=== PATIENT | female | born 1990 | race Two or more races ===

== ENCOUNTER 2024-04-24 11:31 | Emergency (ER) | payer MEDICAID, SELFPAY ==
[2024-04-24 11:44] VITALS: BP 118/78; PULSE 84; RESP 18; TEMP 36.7; O2SAT 100; BMI 25.2
--- NOTE | 2024-04-24 12:01 | EDNOTE_ITS ---
ED Abdominal Pain RME/HPI General Chief Complaint: Abdominal Pain Stated complaint: RLQ ABD PAIN X 0200 Time seen by provider: 04/24/24 11:38 Arrival date/time: 04/24/24 11:31 RME / HPI RME / HPI narrative: This section includes all my notes and documentations, including HPI, PE, and ED course.? Gordon Balderas MD HPI: 34 year old female with surgical hx that includes and tubal ligation, otherwise no other chronic medical history reported presents to the ED for evaluation of abdominal pain beginning ~ 9 hours prior to arrival. Described as aching in sensation that is located most to the right lower quadrant, rating as moderate. Accompanied by nausea without vomiting. Denies fevers, chills, diarrhea, or urinary symptoms. No other complaints. ROS: All negative except as documented in HPI. Physical Exam: General:? Alert and oriented.? No acute distress when remaining still.?? Eyes:? Conjunctivae and lids clear.? ENT:? No nasal congestion.? Neck:? Supple.? Heart:? RRR.? Lungs:? No respiratory distress.? Good air movement.? Abdomen:? Soft with RLQ tenderness. Legs:? No clubbing, cyanosis, edema.? Skin:? Warm and dry.?? Neuro:? Alert and oriented X 3.?? I reviewed all diagnostic test results. My review of the CT report is?normal appendix, findings suggestive of rupture ovarian cyst. Blood tests and urine tests?unremarkable. At this point, diagnoses include?ovarian cyst rupture. She remained stable. Recommended supportive care. Based on my best medical judgment, made decision no further evaluation or treatment indicated at this time.? Patient understands and agrees to the discharge instructions customized and printed, see below. Discharge instructions from Dr. Balderas: -- After extensive evaluation, there is no emergency such as appendicitis needing urgent surgery. -- Your pain is from ovarian cyst that ruptured. -- In young females, it is normal to have ovarian cysts (sacs of fluid) that come and go depending on the menstruation.? If a cyst ruptures, it can cause severe pain until your body reabsorbs the fluid. -- Apply ice or heat if helpful. Ibuprofen 600 mg every 6-8 hours today and tomorrow to decrease inflammation then as needed. Tylenol with codeine for severe pain. -- See a private doctor on 04/28/2024 if not completely better.? -- Seek immediate medical care with worsening, fever, or with any concerns. Instrucciones de mary carmen del Dr. Balderas: -- Despu?s de ziggy evaluaci?n exhaustiva, no hay ninguna emergencia claire apendicitis que requiera cirug?a urgente. -- Lo m?s probable es que el dolor se deba a un quiste ov?rico que se rompi?. -- En las mujeres j?venes, es normal tener quistes ov?ricos (bolsas de l?quido) que aparecen y desaparecen seg?n la menstruaci?n. Si un quiste se rompe, puede causar un dolor intenso hasta que el cuerpo reabsorba el l?quido. -- Aplique hielo o calor si es ?til. Y analg?sicos de venta patti. -- Consulte a un m?dico privado el 10/29/2023. Solicite ziggy derivaci?n para halina a un ginec?logo para asegurarse de que no haya otras afecciones subyacentes graves. -- Busque atenci?n m?dica inmediata si empeora, tiene fiebre o tiene alguna inquietud. Gordon Balderas MD Related Data Previous Rx's ?Medication ?Instructions ?Recorded ferrous sulfate 324 mg (65 mg 324 mg PO BID #60 tabs 0 08/18/23 iron) tablet,delayed release acetaminophen 300 mg-codeine 30 mg 2 tab PO TID PRN pa in #20 tabs 04/24/24 tablet Allergies Allergy/AdvReac Type Severity Reaction Status Date / Time ambroxol Allergy Rash Verified 04/24/24 11:33 metronidazole Allergy Rash Verified 04/24/24 11:33 Review of Systems Review of Systems Systems Reviewed: All systems reviewed, normal except as documented Past Medical History Past Medical History CARDIAC: Negative Congestive Heart Failure RESPIRATORY: Negative Chronic Obstructive Pulmonary Disease (COPD) GENITOURINARY: Negative Renal Disease ENDOCRINE: Negative Diabetes Mellitus Type 1 or Diabetes Mellitus Type 2 Social History SMOKING STATUS: Never smoker ED Exam Narrative Physical exam: As noted in HPI Course Quality Measures none Orders Category Date Time Status CT abdomen pelvis wo con Stat Exams 04/24/24 12:05 Completed Amylase Stat Lab 04/24/24 12:25 Completed CBC Stat Lab 04/24/24 12:25 Completed CMP [Comprehensive Metabolic Panel] Stat Lab 04/24/24 12:25 Completed Lipase Stat Lab 04/24/24 12:25 Completed Magnesium Stat Lab 04/24/24 12:25 Completed UA [Urinalysis] Stat Lab 04/24/24 13:00 Completed Vital Signs Vital signs: Vital Signs Temperature 98.1 F 04/24/24 11:44 Pulse Rate 84 04/24/24 11:44 Respiratory Rate 18 04/24/24 11:44 Blood Pressure 118/78 04/24/24 11:44 Pulse Oximetry (%) 100 04/24/24 11:44 Oxygen Delivery Method Room Air 04/24/24 11:44 Pulse ox is 100% on room air which is adequate. Abdominal Pain MDM MDM Narrative MDM Narrative:: Bijal Barraza am scribing for and in the presence of Dr. Balderas. Patient data External records reviewed:: [facility] previous records (I reviewed ED visit on 08/18/2023) Clinical information provided by:: patient Social determinants that could affect healthcare access:: none Patient has the following chronic illnesses:: surgical hx that includes and tubal ligation, otherwise no other chronic medical history How is presenting disease/condition affected by chronic disease/condition?: no chronic disease Evaluation data The following diagnostics were reviewed and interpreted by me:: lab results and radiology exam(s) Lab and/or radiology exams considered but not ordered:: None Interpretation Summary: My review of the CT report is?normal appendix. Medications / Prescriptions Medications or Prescriptions considered but not ordered:: None Medication administrations:: None Consultations Consultation(s) initiated? (list below): No Diagnosis Differential diagnosis abdominal pain: abdominal pain, acute appendicitis, calculus of kidney, constipation and gastroenteritis Most likely diagnosis given after review of the tests above:: Ovarian cyst rupture Admission Indicated Admission indicated?: not indicated Explain why admission is indicated or not indicated:: Does not meet admission criteria Admission Request Was there a request for admission?: No Disposition Plan Disposition Plan: Discharge Discharge Attestation Discharge Attestation: The patient and all family members were given an opportunity to ask questions and understood the discharge instructions. Discharge instructions specifically effects, indications for sooner follow up or return to the emergency department, and the expected course of current diagnosis. Patient condition: Stable Discharge Plan Plan Patient Disposition: HOME (Self Care) Prescriptions/Referrals Prescriptions/Med Rec: New acetaminophen-codeine 300-30 mg tablet 2 tab PO TID MDD 6 PRN (Reason: pain) Qty: 20 0RF No Action ferrous sulfate 324 mg (65 mg iron) tablet,delayed release (DR/EC) 324 mg PO BID Qty: 60 0RF Referrals: Stalin Clay MD [Primary Care Provider] - In 1 week Problem List Clinical Impression: Ovarian cyst rupture Patient/Caregiver Discharge Instructions Discharge Activity: activity as tolerated Education Materials: ED Ovarian Cyst Additional Instructions: Discharge instructions from Dr. Balderas: -- After extensive evaluation, there is no emergency such as appendicitis needing urgent surgery. -- Your pain is from ovarian cyst that ruptured. -- In young females, it is normal to have ovarian cysts (sacs of fluid) that come and go depending on the menstruation.? If a cyst ruptures, it can cause severe pain until your body reabsorbs the fluid. -- Apply ice or heat if helpful. Ibuprofen 600 mg every 6-8 hours today and tomorrow to decrease inflammation then as needed. Tylenol with codeine for severe pain. -- See a private doctor on 04/28/2024 if not completely better.? -- Seek immediate medical care with worsening, fever, or with any concerns. Instrucciones de mary carmen del Dr. Balderas: -- Despu?s de ziggy evaluaci?n exhaustiva, no hay ninguna emergencia claire apendicitis que requiera cirug?a urgente. -- Lo m?s probable es que el dolor se deba a un quiste ov?rico que se rompi?. -- En las mujeres j?venes, es normal tener quistes ov?ricos (bolsas de l?quido) que aparecen y desaparecen seg?n la menstruaci?n. Si un quiste se rompe, puede causar un dolor intenso hasta que el cuerpo reabsorba el l?quido. -- Aplique hielo o calor si es ?til. Y analg?sicos de venta patti. -- Consulte a un m?dico privado el 10/29/2023. Solicite ziggy derivaci?n para halina a un ginec?logo para asegurarse de que no haya otras afecciones subyacentes graves. -- Busque atenci?n m?dica inmediata si empeora, tiene fiebre o tiene alguna inquietud. Print Language: [place] Stand Alone Forms: Lauren Award Info., Patient Portal Info Letter
--- NOTE | 2024-04-24 12:05 | XR_ITS ---
Examination: CT abdomen and pelvis without contrast. Coronal 3-D reconstructions. Sagittal 2-D reconstructions. Date and time of exam:April 24, 2024 1438 hours INDICATIONS: Onset right lower abdominal pain today CTDI: vol (mGy): 8.17 DLP: (mGycm): 477 Technique: Axial images of the abdomen have been obtained, 3 mm slice thickness Intravenous contrast material has not been administered. Low dose protocols were performed. One or more of the following dose reduction techniques were used; automated exposure control, adjustment of the mA and/or KV according to patient size, use of iterative reconstruction technique. Findings: No focal liver or splenic lesions No gallstones No pancreatic or adrenal mass No renal or ureteral calculi, no hydronephrosis Normal appendix No bowel obstruction 6 mm fat-containing umbilical hernia No diverticulitis Partially retroverted uterus with mildly enlarged fundus Free fluid, moderate in the pelvis, Probable 15 mm cyst in the cervix Urinary bladder intact Intact osseous structures IMPRESSION: Normal appendix Mildly enlarged fundus of uterus with moderate free fluid in the pelvis Recommend pelvic sonography follow-up
[2024-04-24 12:38] LABS: Basophils # (Auto) 0.1 Thou/mm3 (0.0-0.2); Basophils % (Auto) 1 % (0-2.5); Eosinophils % (Auto) 0 % (0-10); Hematocrit 38.1 % (36.0-46.0); Hemoglobin 11.7 g/dL (12.0-16.0); Immature Granulocytes % (Auto) 0 % (0-0); Immature Granulocytes Auto 0.01 Thou/mm3 (0.00-0.00); Lymphocytes # (Auto) 1.4 Thou/mm3 (1.0-4.8); Lymphocytes % (Auto) 20 % (10-50); Mean Corpuscular HGB Conc 30.7 g/dl (31.0-37.0); Mean Corpuscular Hemoglobin 23.9 pg (25.0-35.0); Mean Corpuscular Volume 78 fL (80-100); Monocytes # (Auto) 0.5 Thou/mm3 (0.0-0.8); Monocytes % (Auto) 7 % (0-12); Neutrophils # (Auto) 4.9 Thou/mm3 (1.8-7.7); Neutrophils % (Auto) 72 % (37-80); Nucleated Red Blood Cell % 0 /100 WBC (0); Platelet Count 336 Thou/mm3 (140-440); RDW Standard Deviation 44.2 fL (36.4-46.3); Red Blood Count 4.89 Miln/mm3 (4.00-5.20); White Blood Count 6.8 Thou/mm3 (3.6-11.0)
[2024-04-24 12:56] LABS: Alanine Aminotransferase 14 U/L (10-49); Albumin, Serum 4.9 gm/dL (3.5-5.0); Albumin/Globulin Ratio 1.6 (1.2-2.2); Alkaline Phosphatase 73 U/L (46-116); Amylase 104 U/L (30-118); Anion Gap 10 (7-16); Aspartate Amino Transferase 17 U/L (0-34); BUN/Creatinine Ratio 13 Ratio (12-20); Bilirubin,Total 0.4 mg/dL (0.3-1.2); Blood Urea Nitrogen 9 mg/dL (9-23); Calcium 9.8 mg/dL (8.3-10.6); Calcium (Corrected) 9.8 mg/dL (8.5-10.1); Carbon Dioxide 24.3 mMol/L (20.0-31.0); Chloride 105 mMol/L (98-107); Creatinine (Component) 0.7 mg/dL (0.6-1.3); Estimated Creatinine Clearance 108.4 mL/min (>60); Globulin 3.1 gm/dL (2.3-3.5); Glucose 102 mg/dL (74-106); Lipase 38 U/L (12-53); Magnesium 2.1 mg/dL (1.6-2.6); Osmolality,Calculated 276 (275-295); Sodium 139 mMol/L (136-145); eGFR > 60 See Note
[2024-04-24 13:05] LABS: Collection Type, Urine Clean Catch
[2024-04-24 13:13] LABS: Bacteria,Urine Rare; Bilirubin,Urine Negative (Negative); Blood,Urine Negative (Negative); Clarity,Urine Clear (Clear/Hazy); Color,Urine Lt-Yellow (Lt Yel-Yel); Glucose, Urine Negative (Negative); Ketones,Urine Negative (Negative); Leukocyte Esterase,Urine Negative (Negative); Nitrite,Urine Negative (Negative); PH,Urine 6.5 (5.0-7.0); Protein,Urine Negative (Neg - Trace); RBC,Urine 1 /hpf (0-3); Specific Gravity,Urine 1.012 (1.001-1.035); Squamous Epithelial Cell,Urine 1 /hpf (0-5); Urobilinogen,Urine Negative mg/dL (0.0-1.0); WBC,Urine 1 /hpf (0-5)
[2024-04-24 14:47] VITALS: BP 114/71; PULSE 84; RESP 19; TEMP 36.3; O2SAT 100
[2024-04-24 16:10] VITALS: BP 110/72; PULSE 85; RESP 17; TEMP 36.6; O2SAT 97
== END 2024-04-24 16:17 | disposition home or self-care (01) ==
PROVIDERS: Emergency Provider Emergency Medicine; PCP Family Medicine
DX: N83.201 Unspecified ovarian cyst, right side (principal)
CPT/HCPCS: 36415; 74176; 80053; 81001; 82150; 83690; 83735; 85025; 99284

== ENCOUNTER 2024-11-20 09:25 | Emergency (ER) | payer MEDICAID, SELFPAY ==
[2024-11-20 09:43] VITALS: BP 118/81; PULSE 75; RESP 17; TEMP 36.8; O2SAT 100
--- NOTE | 2024-11-20 10:00 | EKG_ITS ---
[facility] Test Date: 2024-11-20 Pat Name: DELIO GOLDMAN Department: Room: - Gender: Female Patent Drafter: : 1990 Requested By: Coy Anaya (GAYE) Order Number: [id number] Reading MD: Coy Anaya (HOSPITAL ADMINISTRATIVE ASSISTANT) Measurements Intervals [place] Rate: 79 P: 72 NE: 130 QRS: 76 QRSD: 83 T: 57 QT: 382 QTc: 439 Interpretive Statements SINUS RHYTHM No previous ECG available for comparison /store/S0/[id number]/ecg/[id number].pdf
--- NOTE | 2024-11-20 10:00 | XR_ITS ---
Examination: PA lateral chest 2 views. TECHNIQUE: Upright PA lateral chest 2 views. Date and time: November 20, 2024, 1007 hours INDICATIONS: Chest pain beginning 3 days ago. FINDINGS: Normal heart size. Lungs are clear. The osseous structures are intact. IMPRESSION: No active disease.
[2024-11-20 10:34] LABS: Basophils # (Auto) 0.0 Thou/mm3 (0.0-0.2); Basophils % (Auto) 1 % (0-2.5); Eosinophils # (Auto) 0.0 Thou/mm3 (0.0-0.5); Eosinophils % (Auto) 1 % (0-10); Hematocrit 26.3 % (36.0-46.0); Immature Granulocytes Auto 0.01 Thou/mm3 (0.00-0.00); Lymphocytes # (Auto) 2.0 Thou/mm3 (1.0-4.8); Lymphocytes % (Auto) 45 % (10-50); Mean Corpuscular HGB Conc 28.9 g/dl (31.0-37.0); Mean Corpuscular Hemoglobin 18.3 pg (25.0-35.0); Mean Corpuscular Volume 63 fL (80-100); Monocytes # (Auto) 0.4 Thou/mm3 (0.0-0.8); Monocytes % (Auto) 9 % (0-12); Neutrophils # (Auto) 2.0 Thou/mm3 (1.8-7.7); Neutrophils % (Auto) 44 % (37-80); Nucleated Red Blood Cell # 0.00 Thou/mm3 (0.00-0.00); Nucleated Red Blood Cell % 0 /100 WBC (0); Platelet Count 272 Thou/mm3 (140-440); RDW Standard Deviation 44.1 fL (36.4-46.3); Red Blood Count 4.16 Miln/mm3 (4.00-5.20); White Blood Count 4.4 Thou/mm3 (3.6-11.0)
[2024-11-20 10:44] LABS: HCG,Qualitative Serum Negative
[2024-11-20 10:47] LABS: Hemoglobin 7.6 g/dL (12.0-16.0)
--- NOTE | 2024-11-20 10:51 | EDRME_ITS ---
Rapid Medical Screening Exam RME Arrival date/time: 11/20/24 09:25 34-year-old female presents to the Emergency Department for complaint of left- sided chest pain and shoulder pain ongoing x 1 week Chief Complaint: Shortness of Breath/Dyspnea Time Seen by Provider: 11/20/24 09:59 Vital signs: Vital Signs Temperature 98.3 F 11/20/24 09:43 Pulse Rate 75 11/20/24 09:43 Respiratory Rate 17 11/20/24 09:43 Blood Pressure 118/81 11/20/24 09:43 Pulse Oximetry (%) 100 11/20/24 09:43 Oxygen Delivery Method Room Air 11/20/24 09:43
[2024-11-20 10:53] LABS: Alanine Aminotransferase 8 U/L (10-49); Albumin, Serum 4.5 gm/dL (3.5-5.0); Albumin/Globulin Ratio 2.0 (1.2-2.2); Alkaline Phosphatase 59 U/L (46-116); Anion Gap 10 (7-16); Aspartate Amino Transferase 14 U/L (0-34); BUN/Creatinine Ratio 17 Ratio (12-20); Bilirubin,Total 0.3 mg/dL (0.3-1.2); Blood Urea Nitrogen 10 mg/dL (9-23); Calcium 9.8 mg/dL (8.3-10.6); Calcium (Corrected) 9.8 mg/dL (8.5-10.1); Carbon Dioxide 22.6 mMol/L (20.0-31.0); Chloride 109 mMol/L (98-107); Creatinine (Component) 0.6 mg/dL (0.6-1.3); Globulin 2.3 gm/dL (2.3-3.5); Glucose 99 mg/dL (74-106); Osmolality,Calculated 282 (275-295); Potassium 3.7 mMol/L (3.4-5.1); Sodium 142 mMol/L (136-145); Total Protein 6.8 gm/dL (5.7-8.2); Troponin I < 0.002 ng/mL (0.0-0.045); eGFR > 60 See Note
--- NOTE | 2024-11-20 12:19 | EDNOTE_ITS ---
ED SOB =RME/HPI General Chief Complaint: Shortness of Breath/Dyspnea Stated Complaint: Left arm pain X 1 week, SOB, left chest pain Time Seen by Provider: 11/20/24 09:59 Arrival date/time: 11/20/24 09:25 RME / HPI RME / HPI Narrative: 34-year-old female patient came in for evaluation regarding dyspnea on exertion, on and off left-sided chest discomfort radiating to the left arm, has been ongoing for the last 1 week. Patient also complained of low energy. Patient also complained of heavy menstruation. Currently patient is not having any menstruation. Patient denies any headache. Patient denies any dizziness. Denies any other complaints no medications taken prior to arrival. Related Data Previous Rx's ?Medication ?Instructions ?Recorded ferrous sulfate 324 mg (65 mg 324 mg PO BID #60 tabs 0 08/18/23 iron) tablet,delayed release acetaminophen 300 mg-codeine 30 mg 2 tab PO TID PRN pa in #20 tabs 04/24/24 tablet ferrous sulfate 324 mg (65 mg 324 mg PO TID #90 tabs 0 11/20/24 iron) tablet,delayed release pantoprazole 40 mg tablet,delayed 40 mg PO QDAY #30 ta bs 11/20/24 release (Protonix) Allergies Allergy/AdvReac Type Severity Reaction Status Date / Time ambroxol Allergy Rash Verified 11/20/24 09:32 metronidazole Allergy Rash Verified 11/20/24 09:32 Review of Systems Review of Systems Narrative Review of Systems: Review of system reviewed and within normal limits except mentioned in HPI ED Exam Narrative Physical exam: VITAL SIGNS: Reviewed. GENERAL APPEARANCE: Alert and interactive, follows commands, no acute distress, HEAD AND FACE: Non-traumatic. ENT: PERRL, pale conjunctiva, eyelid no trauma, Mucous membrane moist. NECK: Supple, nontender, no nuchal rigidity. CHEST: No tenderness, no crepitus, no paradoxical movement, no retractions. LUNGS: Clear, well ventilated, symmetric, no rales, no wheezing, no ronchi, no stridor, good breath sounds bilaterally. HEART: Regular rate, regular rhythm, no murmur, no gallops. ABDOMEN: Soft, positive bowel sounds, nondistended, no guarding, nontender, no rebound, no masses, RECTAL: Deferred. GENITAL: Deferred. NEUROLOGICAL: Gross motor function intact sensory function intact, Appropriate for age. MUSCULOSKELETAL: low back nontender, full range of motion. EXTREMITIES: Nontender, full range of motion. SKIN: Color pale, dry, no rash, no lacerations, no abrasions, no contusions. LYMPHATICS: Deferred. Course Quality Measures none Orders Category Date Time Status EKG (ED ONLY) *Do not use* NOW Care 11/20/24 10:00 Completed Insert IV NOW Care 11/20/24 10:51 Active EKG (ED Only) Stat Exams 11/20/24 10:00 Draft XR chest 2V Stat Exams 11/20/24 10:00 Completed CBC Stat Lab 11/20/24 10:09 Completed Comprehensive Metabolic Panel Stat Lab 11/20/24 10:09 Completed HCG,Qualitative Serum Stat Lab 11/20/24 10:09 Completed Troponin I Stat Lab 11/20/24 10:09 Completed Type and Screen Stat Lab 11/20/24 10:59 Completed Vital Signs Vital signs: Vital Signs Temperature 98.3 F 11/20/24 09:43 Pulse Rate 75 11/20/24 09:43 Respiratory Rate 17 11/20/24 09:43 Blood Pressure 118/81 11/20/24 09:43 Pulse Oximetry (%) 100 11/20/24 09:43 Oxygen Delivery Method Room Air 11/20/24 09:43 Shortness of Breath / Dyspnea MDM Narrative MDM Narrative:: 34-year-old female patient came in for evaluation regarding dyspnea on exertion, on and off left-sided chest discomfort radiating to the left arm, has been ongoing for the last 1 week. Patient also complained of low energy. Patient also complained of heavy menstruation. Currently patient is not having any menstruation. Patient denies any headache. Patient denies any dizziness. Denies any other complaints no medications taken prior to arrival. Patient's hemoglobin today was noted to be 7.6, hematocrit of 26.3 platelets normal troponin is normal EKG unremarkable chest x-ray came back unremarkable. Results discussed with the patient. Patient is low hemoglobin is probably secondary to her heavy menstruation every month. Patient was advised to closely follow-up with GAS GENERATOR OPERATOR for her ministration problem. Patient will be sent home on ferrous sulfate and Protonix. She does not need any blood transfusion at this time. Patient appears nontoxic and hemodynamically stable .Decision to discharge the patient. The patient/family was given an opportunity to ask questions and understood their discharge instructions. Discharge instructions specifically included follow up provider and time frame, current and/or new medications and possible side effects, indications for sooner follow up or return to the [facility] department, and the expected course of current diagnosis. Patient reports feeling better as well and giving evidence of significant clinical improvement, I believe patient is now a candidate for discharge. Patient data External records reviewed:: None Clinical information provided by:: patient Social determinants that could affect healthcare access:: none Patient has the following chronic illnesses:: None How is presenting disease/condition affected by chronic disease/condition?: no chronic disease Evaluation data The following diagnostics were reviewed and interpreted by me:: lab results and radiology exam(s) Lab and/or radiology exams considered but not ordered:: None Interpretation Summary: See results MDM Medications / Prescriptions Medications or Prescriptions considered but not ordered:: None Medication administrations:: None Consultations Consultation(s) initiated? (list below): No Diagnosis Shortness of Breath Differential Diagnosis: other (Chest pain, anemia, menometrorrhagia) Most likely diagnosis given after review of the tests above:: Menometrorrhagia, anemia Admission Indicated Admission indicated?: not indicated Admission Request Was there a request for admission?: No Disposition Plan Disposition Plan: Discharge Discharge Attestation Discharge Attestation: The patient was given an opportunity to ask questions and understood the discharge instructions. Discharge instructions specifically effects, indications for sooner follow up or return to the emergency department, and the expected course of current diagnosis. Patient condition: Stable Discharge Plan Plan Patient Disposition: HOME (Self Care) Discharge Disposition comment: stable Prescriptions/Referrals Prescriptions/Med Rec: New ferrous sulfate 324 mg (65 mg iron) tablet,delayed release (DR/EC) 324 mg PO TID Qty: 90 0RF pantoprazole [Protonix] 40 mg tablet,delayed release (DR/EC) 40 mg PO QDAY Qty: 30 0RF No Action ferrous sulfate 324 mg (65 mg iron) tablet,delayed release (DR/EC) 324 mg PO BID Qty: 60 0RF acetaminophen-codeine 300-30 mg tablet 2 tab PO TID MDD 6 PRN (Reason: pain) Qty: 20 0RF Referrals: Stalin Clay MD [Primary Care Provider] - In 1 week Problem List Clinical Impression: Anemia, Menometrorrhagia Patient/Caregiver Discharge Instructions Discharge Activity: activity as tolerated Education Materials: Anemia, ED Heavy Menstrual Bleeding Additional Instructions: Thank you for the opportunity for serving you today. You are stable for discharged . You are advised to: Follow-up with your PCP in 1 to 2 days Return to ED for worsening of symptoms Increase oral fluids Take medication as prescribed As your PCP to refer you to G[facility] GENERATOR OPERATOR regarding your heavy menstruation Print Language: [place] Stand Alone Forms: Lauren Award Info., Patient Portal Info Letter PA/PHOTORADIO OPERATOR Supervising Physician PA/CECY Supervising Physician: MD Dony
== END 2024-11-20 12:20 | disposition home or self-care (01) ==
PROVIDERS: Nurse Practitioner Primary Care; Emergency Provider Family Medicine; PCP Family Medicine
DX: D64.9 Anemia, unspecified (principal); R07.89 Other chest pain; R06.09 Other forms of dyspnea
CPT/HCPCS: 36415; 71046; 80053; 84484; 84703; 85025; 86850; 86900; 86901; 93005; 99283